=== PATIENT | female | born 1985 ===

== ENCOUNTER 2024-09-21 06:08 | Day surgery (SDC) | payer OTHER ==
[2024-09-17 11:53] LABS: HEMATOCRIT 34.6 % (36.0-45.00); HEMOGLOBIN 11.2 g/dL (12.0-15.00); MEAN CELL VOLUME 77.9 fL (80.00-100.00); MEAN CORPUSCULAR HEMOGLOBIN 25.1 pg (27.00-32.0); MEAN CORPUSCULAR HGB CONC 32.3 g/dl (32.0-36.0); PLATELET COUNT 453 K/uL (150-450); RED BLOOD COUNT 4.44 M/uL (4.00-6.00)
[2024-09-17 11:56] LABS: PH,URINE 5.5 (5.0-8.0); URINE APPEARANCE Clear; URINE BILIRRUBIN Negative (NEGATIVE); URINE BLOOD Negative; URINE COLOR Yellow; URINE GLUCOSE Negative (NEGATIVE); URINE KETONE Negative (NEGATIVE); URINE LEUKOCYTE Negative; URINE NITRATE Negative; URINE PROTEIN Negative (NEGATIVE); URINE UROBILINOGEN 0.2 E.U./dl
[2024-09-17 11:57] VITALS: BP 137/84
[2024-09-17 11:57] LABS: URINE BACTERIA 13.4 uL (0.0-1933); URINE EPITHELIAL CELLS 6.7 uL (0.0-38.8); URINE WBC 1.8 uL (0.0-23.2)
[2024-09-17 12:01] LABS: URINE RBC 1.4 uL (0.0-20.8)
[2024-09-17 12:42] LABS: ALBUMIN 3.8 gm/dL (3.4-5.0); BILIRUBIN TOTAL 0.31 mg/dL (0.3-1.2); CALCIUM 9.7 mg/dL (8.5-10.1); CREATININE SERUM 0.6 mg/dL (0.55-1.02); GFR 110.17; GLOBULINA 3.8 G/DL (2.4-3.5); POTASSIUM 4.4 mEq/L (3.5-5.1); TOTAL PROTEIN 7.6 gm/dL (6.4-8.2)
[2024-09-17 12:43] LABS: INR 0.99; PARTIAL THROMBOPLASTIN TIME 27.3 SECONDS (22.0-34.0); PROTHROMBIN TIME 10.8 SECONDS (9.0-11.5)
[~2024-09-21] VITALS: Ht 165.1 cm; Wt 95.3 kg
[~2024-09-21 06:08] MED LIST: GLIPIZIDE XL2.5 MG PO; METFORMIN HCL500 M3 PO
[2024-09-21] MEDS ORDERED: POVIDONE-IODINE 118 ML BOTT TOP ONE (13:13)
[2024-09-21] MEDS ORDERED: MORPHINE SULFATE 4 MG/ML VIAL IV ONE (15:20)
[2024-09-21] MEDS ORDERED: MORPHINE SULFATE 2 MG/ML CARTRIDGE IV ONE (15:50)
== END 2024-09-21 17:40 | disposition home or self-care (01) ==
LOC: CIR.AMB 06:08 → LAB 10:25 → CIR.AMB 17:40
PROVIDERS: ATTEND Obstetrics & Gynecology
DX: N93.8 Other specified abnormal uterine and vaginal bleeding (principal); Z88.0 Allergy status to penicillin